=== PATIENT | female | born 1935 | race Caucasian/White ===

== ENCOUNTER 2020-06-01 10:25 | Emergency (ER) | payer OTHER ==
[~2020-06-01] VITALS: Ht 160 cm; Wt 112.2 kg
[2020-06-01 11:57] VITALS: BP 149/60
== END 2020-06-01 13:12 | disposition home or self-care (01) ==
LOC: ER 10:25
DX: S46.911A Strain of unspecified muscle, fascia and tendon at shoulder and upper arm level, right arm, initial encounter (principal); Z88.1 Allergy status to other antibiotic agents; Z88.8 Allergy status to other drugs, medicaments and biological substances; X50.1XXA Overexertion from prolonged static or awkward postures, initial encounter; Y93.89 Activity, other specified; Y92.89 Other specified places as the place of occurrence of the external cause; Y99.8 Other external cause status

== ENCOUNTER 2021-04-23 01:03 | Inpatient (IN) | payer OTHER ==
[~2021-04-23] VITALS: Ht 170.2 cm; Wt 104.7 kg
--- NOTE | ~2021-04-23 | EMS ---
[place] [address] EMS Patient Care Report Name: ABDIAS SEGUNDO Room #: 170-16 ADM IN M.R.#: [id number] Admission: 04/23/21 Attend Phys: Lilian Tang Discharge: Date of : 34 Report #: [id number] THIS REPORT FOR: //name// Report Transmitted: 04/23/2021 15:37 EMS Care Summary [place], [place]/[facility] Incident [id number] @ 04/23/2021 00:23 Incident [address] [place] [address] Patient ABDIAS SEGUNDO Female, 86 Years 1935 Patient Address [address] [place] [address] Patient History Other,Hypertension (HTN),Stroke/CVA, Patient Allergies No known allergies, Chief Complaint confusion Disposition Transported No Lights/[place] Dispatch Reason Sick Person Transported To [facility] Narrative pt found seated in wheelchair in living room. she opens eyes to light shaking and is grossly confused. son states her speech has been getting slurred and she has had increased confusion over the past 90 mins. no N/V/D. pt told son earlier that she just felt "sick". her son req her eval at [facility] [address] EMS Patient Care Report Name: ABDIAS SEGUNDO Room #: 170-16 ADM IN .R.#: [id number] Admission: 04/23/21 Attend Phys: Lilian Tang Discharge: Date of : 34 Report #: [id number] cot, tx as listed in flow chart. transport w/o change in pt condition. report to staff rm 1. Initial Vitals @00:36P: 82,R: 18,BP: 105/49,GCS: 11,Glucose: 159,SpO2: 93,Revised Trauma: 11, @00:52P: 80,R: 18,BP: 106/50,GCS: 11,SpO2: 99,Revised Trauma: 11, Assessments @00:31MENTAL:Other,Confused,SKIN:No Abnormalities,HEENT:Eyes: Right Pupil: 3-mm,Eyes: Left Pupil: 3-mm,LUNG SOUNDS:ABDOMEN:PELVIS//GI:EXTREMITIES:Right Leg: Edema,Left Leg: Edema,PULSE:NEURO:Slurred Speech, Impression Confusion/Delirium Procedures @00:31 ALS Assessment Response: Unchanged @00:47 IV Therapy - Saline Lock 0cc (22 ga) Site: Hand-Left Response: UnchangedFailed @00:42 Oxygen FlowRate: 4 Device: Nasal Cannula (NC) Response: UnchangedSucceeded @00:33 Stretcher Response: Unchanged @00:38 3-Lead ECG Response: Unchanged Timeline 00:21,Call Received 00:21,Dispatch Notified 00:23,Dispatched 00:24,En Route 00:29,On Scene 00:31,At Patient 00:31,ALS Assessment,Response: Unchanged 00:33,Stretcher,Response: Unchanged 00:36,BP: 105/49 M,PULSE: 82,RR: 18 R,SPO2: 93 Ox,ETCO2: ,B,PAIN: ,GCS: 11, 00:38,3-Lead ECG,Response: Unchanged 00:42,Oxygen FlowRate: 4 Device: Nasal Cannula (NC) Response: UnchangedSucceeded, 00:47,IV Therapy - Saline Lock 0cc 22 ga Site: Hand-Left,Response: UnchangedFailed, 00:48,Depart Scene 00:52,BP: 106/50 M,PULSE: 80,RR: 18 R,SPO2: 99 Ox,ETCO2: ,BG: ,PAIN: ,GCS: 11, 00:56,At Destination 01:14,Call Closed [facility] [address] [place] [address] EMS Patient Care Report Name: ABDIAS SEGUNDO Room #: 170-16 ADM IN M.R.#: [id number] Admission: 04/23/21 Attend Phys: Lilian Tang Discharge: Date of : 34 Report #: [id number] Disclaimer v1.1 Copyright 2021 [employer] This EMS Care Summary contains data elements from the applicable legal record (which may be displayed differently). It is designed to provide pertinent information for the following purposes: continuity of care, clinical quality, and state data reporting. The complete legal record is available to ED staff and administrators of the receiving hospital in [facility]'s Patient Tracker. All data is provided "as is."
--- NOTE | ~2021-04-23 | EMS ---
[address] [address] EMS Patient Care Report Name: ABDIAS SEGUNDO Room #: REG GUERA Santana#: [id number] Admission: 04/23/21 Attend Phys: Discharge: Date of : 34 Report #: [id number] THIS REPORT FOR: //name// Report Transmitted: 04/23/2021 01:02 EMS Care Summary [place], [place]/[facility] Incident [id number] @ 04/23/2021 00:23 Incident Location [address] [place] [address] Patient ABDIAS SEGUNDO Female, 86 Years 1935 Patient Address [address] [place] [address] Patient History Other,Hypertension (HTN),Stroke/CVA, Patient Allergies No known allergies, Chief Complaint confusion Disposition Transported No Lights/[place] Dispatch Reason Sick Person Transported To [facility] Narrative pt found seated in wheelchair in living room. she opens eyes to light shaking and is grossly confused. son states her speech has been getting slurred and she has had increased confusion over the past 90 mins. no N/V/D. pt told son earlier that she just felt "sick". her son req her eval at [facility]. pt lifted to [address] [address] EMS Patient Care Report Name: ABDIAS SEGUNDO Room #: REG GUERA Santana#: [id number] Admission: 04/23/21 Attend Phys: Discharge: Date of : 34 Report #: [id number] cot, tx as listed in flow chart. transport w/o change in pt condition. report to staff rm 1. Initial Vitals @00:36P: 82,R: 18,BP: 105/49,GCS: 11,Glucose: 159,SpO2: 93,Revised Trauma: 11, @00:52P: 80,R: 18,BP: 106/50,GCS: 11,SpO2: 99,Revised Trauma: 11, Assessments @00:31MENTAL:Other,Confused,SKIN:No Abnormalities,HEENT:Eyes: Right Pupil: 3-mm,Eyes: Left Pupil: 3-mm,LUNG SOUNDS:ABDOMEN:PELVIS//GI:EXTREMITIES:Right Leg: Edema,Left Leg: Edema,PULSE:NEURO:Slurred Speech, Impression Confusion/Delirium Procedures @00:31 ALS Assessment Response: Unchanged @00:47 IV Therapy - Saline Lock 0cc (22 ga) Site: Hand-Left Response: UnchangedFailed @00:42 Oxygen FlowRate: 4 Device: Nasal Cannula (NC) Response: UnchangedSucceeded @00:33 Stretcher Response: Unchanged @00:38 3-Lead ECG Response: Unchanged Timeline 00:21,Call Received 00:21,Dispatch Notified 00:23,Dispatched 00:24,En Route 00:29,On Scene 00:31,At Patient 00:31,ALS Assessment,Response: Unchanged 00:33,Stretcher,Response: Unchanged 00:36,BP: 105/49 M,PULSE: 82,RR: 18 R,SPO2: 93 Ox,ETCO2: ,B,PAIN: ,GCS: 11, 00:38,3-Lead ECG,Response: Unchanged 00:42,Oxygen FlowRate: 4 Device: Nasal Cannula (NC) Response: UnchangedSucceeded, 00:47,IV Therapy - Saline Lock 0cc 22 ga Site: Hand-Left,Response: UnchangedFailed, 00:48,Depart Scene 00:52,BP: 106/50 M,PULSE: 80,RR: 18 R,SPO2: 99 Ox,ETCO2: ,BG: ,PAIN: ,GCS: 11, 00:56,At Destination 01:14,Call Closed [facility] [address] [place] [address] EMS Patient Care Report Name: ABDIAS SEGUNDO Room #: REG GUERA Santana#: [id number] Admission: 04/23/21 Attend Phys: Discharge: Date of : 34 Report #: [id number] Disclaimer v1.1 Copyright 2021 [employer] This EMS Care Summary contains data elements from the applicable legal record (which may be displayed differently). It is designed to provide pertinent information for the following purposes: continuity of care, clinical quality, and state data reporting. The complete legal record is available to ED staff and administrators of the receiving hospital in [facility]'s Patient Tracker. All data is provided "as is."
[2021-04-23 01:06] VITALS: BP 117/34; BP 153/32
[2021-04-23 01:41] LABS: ABSOLUTE NEUTROPHILS 8.1 thou/uL (1.4-8.2); BASOPHILS 0.5 % (0.0-2.0); EOSINOPHILS 1.1 % (0.0-3.0); HEMATOCRIT 31.6 % (37.0-47.0); HEMOGLOBIN 10.1 gm/dL (12.0-15.0); LYMPHOCYTES 10.7 % (24.0-44.0); MCH 27.4 pg (26.0-34.0); MCHC 31.8 g/dL (28.0-37.0); MCV 86.3 fL (80.0-100.0); MONOCYTES 6.8 % (1.0-8.0); PLATELET COUNT 193 thou/uL (150-400); POLYS 80.9 % (36.0-66.0); RBC 3.66 mil/uL (4.20-5.00); RDW 16.6 % (10.5-14.5)
[2021-04-23 01:42] LABS: URINE BILIRUBIN NEGATIVE (Negative); URINE BLOOD TRACE (Negative); URINE CLARITY CLOUDY; URINE COLOR YELLOW; URINE GLUCOSE-RANDOM* NEGATIVE (Negative); URINE KETONES NEGATIVE (Negative); URINE NITRITE-REFLEX NEGATIVE (Negative); URINE PROTEIN (DIPSTICK) TRACE (Negative); URINE SPECIFIC GRAVITY >= 1.030 (1.005-1.035); URINE UROBILINOGEN 0.2 E.U./dl (0.2-1.0)
[2021-04-23 01:43] LABS: URINE LEUKOCYTES-REFLEX 2+ (Negative)
[2021-04-23 01:48] LABS: CALCIUM 8.9 mg/dL (8.5-10.1); CREATININE 1.2 mg/dL (0.6-1.0); POTASSIUM 3.1 mmol/L (3.5-5.1)
[2021-04-23 01:58] LABS: TOTAL BILIRUBIN 0.4 mg/dL (0.2-1.0); TOTAL PROTEIN 6.9 g/dL (6.4-8.2)
[2021-04-23 02:19] LABS: BACTERIA-REFLEX >30 Many /HPF (None Seen); CASTS None Seen /LPF (None Seen); CRYSTALS None Seen /LPF (None Seen); MUCUS 4-6 Moderate strn/LPF (None Seen); SQUAMOUS 0-3 Few /LPF (0-3); URINE RBC 3-10 Few /HPF (NONE SEEN)
--- NOTE | 2021-04-23 07:50 | EKG ---
[address] [place] [address] ELECTROCARDIOGRAM REPORT Name: ABDIAS SEGUNDO Room #: 170-1 ADM IN M.R.#: [id number] Admission: 04/23/21 Attend Phys: Lilian Tang Discharge: Date of : 34 Report #: [id number] [facility] ED Test Date: 2021-04-23 Test Time: 02:03:01 Pat Name: ABDIAS SEGUNDO Department: Room: 170 Gender: F Selling Specialist: LESTERRios : 1935 Requested By: Ever Crawford Order Number: [id number] MD: Dhruv Mcwilliams Measurements Intervals [place] Rate: 79 P: 44 [place]: 177 QRS: -17 QRSD: 96 T: 60 QT: 399 QTc: 458 Interpretive Statements Sinus rhythm Borderline left axis deviation No previous ECG available for comparison Electronically Signed On 04-23-2021 7:50:40 PROJECT MANAGER ENTERTAINMENT AND MEDIA by Dhruv Mcwilliams [email or web address] <ELECTRONICALLY SIGNED> By: Dhruv Mcwilliams MD, LOCATED WITHIN [facility] 04/23/21 [phone] Dhruv Mcwilliams MD, FACC /EPI
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
[2021-04-23 15:20] VITALS: BP 138/48
--- NOTE | 2021-04-23 21:15 | NUR ---
REPORT CLLE DTO FLOOR, GIVEN TO RN.
[2021-04-23 21:55] VITALS: BP 152/30
[2021-04-23 22:14] VITALS: BP 114/40
[2021-04-24 05:46] VITALS: BP 138/55
--- NOTE | 2021-04-24 05:59 | NUR ---
PATIENT IS A NEW ADMIT.PATIENT AOX2 CONFUSED AND FORGETFUL. PATIENT ADMITTED FOR UTI AND AMS. PATIENT IS A POOR HISTORIAN. PATIENT HAS LYMEDEMA WRAPS ON BLE AND REFUSED THIS NURSE TO TAKE THEM OFF.PATIENT NEEDS X2 ASSISTANCE WITH ADL, BED MOBILITY, TRANSFER AND TOILETING. PATIENT ENCOURAGED TO ELEVATE BLE. FALL PRECAUTION IN PLACE. PATIENT IN BED ASLEEP AT THIS TIME BREATHING REGULAR AND UNLABOURED.
[2021-04-24 06:07] LABS: GLYCOHEMOGLOBIN (HGB A1C) 5.6 % (4.8-5.6)
[2021-04-24 07:30] VITALS: BP 122/48
--- NOTE | 2021-04-24 10:53 | NUR ---
Nutrition: pt admitted with UTI, metabolic encephalopathy. Some confusion noted. Physician consulted for "malnutrition"-defer dx. Attempted interview. Fair appetite reported, no weight loss. Pt BMI 36, obesity class 2. 50% of breakfast consumed. Noted some missing teeth, pt voices some chewing difficulty. Will add mech chopped to diet order. Pt agrees. Offer ensure once daily due to fair intakes. Low nutrition risk.
--- NOTE | 2021-04-24 11:16 | NUR ---
A/O X 3 FORGETFUL, ROOM AIR. 2 ASIIST RIGHT FOREARM IV WITH NS INFUSING @ 75 MLS/HR, ZAMORA IN PLACE- YELLOW URINE NOTED IN BAG. BLE LYPHEDEMA-LEGS WRAPPED WITH KHUSHI WRAP/ NO PAIN. TOLERATING IV ZOSYN WELL. WORKED WITH PT/OT.
[2021-04-24 11:25] VITALS: BP 122/53
[2021-04-24 15:15] VITALS: BP 130/52
[2021-04-24 15:19] LABS: HEMATOCRIT 25.8 % (37.0-47.0); HEMOGLOBIN 8.3 gm/dL (12.0-15.0); MCH 27.4 pg (26.0-34.0); MCV 85.7 fL (80.0-100.0); RBC 3.01 mil/uL (4.20-5.00); RDW 16.6 % (10.5-14.5); WBC 7.2 thou/uL (4.0-11.0)
[2021-04-24 15:28] LABS: CREATININE 1.1 mg/dL (0.6-1.0); MAGNESIUM 2.1 mg/dL (1.8-2.4); POTASSIUM 3.4 mmol/L (3.5-5.1)
--- NOTE | 2021-04-24 17:00 | NUR ---
[facility] not accepting of patient. Sp with son who reports he wants to try to take patient home. Rec [facility] cryptanalyst. He reports facilities are not staffed well and patient did not rec much therapy. He is open to hiring private duty. He wants lyphadema wraps for patient. She was rec as outpatient. Phys to order. left [facility] list and private duty info for son in room
[2021-04-24 19:44] VITALS: BP 1520/49
--- NOTE | 2021-04-25 04:10 | NUR ---
ASSUMED CARE OF THIS PT AT 1900 REPORT RECIEVED PIPPA ASSESSMENT COMPLETE. SON AT BEDSIDE, ANSWERED PT AND SONS QUESTIONS, VERBALIZED APPRECIATION. NO C/O PAIN AT THIS TIME. MEDS GIVEN PER MAR. ZAMORA IN PLACE, ZAMORA CARE PERFORMED. BLE LYMPHEDEMA WRAPS IN PLACE. REPOSITIONING FOR COMFORT. IVF GOING PER MAY. ALL NEEDS MET, HOURLY ROUNDING CONTINUING. CALL LIGHT IN REACH
[2021-04-25 05:14] LABS: HEMATOCRIT 24.8 % (37.0-47.0); HEMOGLOBIN 8.2 gm/dL (12.0-15.0); MCH 28.1 pg (26.0-34.0); MCHC 33.1 g/dL (28.0-37.0); MCV 84.7 fL (80.0-100.0); RBC 2.93 mil/uL (4.20-5.00); RDW 16.4 % (10.5-14.5); WBC 6.9 thou/uL (4.0-11.0)
[2021-04-25 05:53] LABS: CALCIUM 7.7 mg/dL (8.5-10.1); POTASSIUM 3.4 mmol/L (3.5-5.1)
[2021-04-25 08:16] VITALS: BP 150/59
--- NOTE | 2021-04-25 09:59 | NUR ---
ARNAUD faxed clinical/therapy info to [facility] . Notified [facility] liaison of info and possible weekend discharge. ARNAUD is following to assist as needed with discharge planning.
[2021-04-25 11:52] VITALS: BP 128/54
[2021-04-25 13:20] VITALS: BP 163/60
--- NOTE | 2021-04-25 18:34 | NUR ---
Patient resting in bed comfortably, no pain, on isolation for ESBL in urine. had a bm, call light within reach, will continous monitoring.
[2021-04-25 20:30] VITALS: BP 140/96
--- NOTE | 2021-04-26 03:26 | NUR ---
TOOK OVER CARE AT 0130. PT AWAKE IN BED, PULLED OUT IV AND TELEMETRY BOX. PT ASSISTED WITH ADL CARE. ZAMORA TO DD. PT STATED HER MEDICINE IS DONE SHE DOES NOT NEED AN IV, HER ANTIBIOTICS HAVE PREVIOUSLY BEEN PILLS. PT REDIRECTED AND SHE RETURNED TO SLEEP. BED ALARM ON. WILL ATTEMPT IV RESTART IN THE AM, PT HAS MAINTENANCE FLUIDS AND ANTIBIOTICS SCHEDULED.
--- NOTE | 2021-04-26 04:13 | NUR ---
PROVIDER NOTIFIED OF PTS CONFUSION AND CONSISTENT REMOVAL OF TELE BOX, WELL PT REMOVING HER IV STATING SHE DOES NOT NEED IT AND MEDS CAN BE ORAL. WILL ATTEMPT RESTART IV IN AM. WILL AM ATTEMPT TO REPLACE TELE BOX IN AM.
[2021-04-26 05:41] LABS: HEMATOCRIT 27.1 % (37.0-47.0); MCH 28.2 pg (26.0-34.0); MCHC 33.1 g/dL (28.0-37.0); RBC 3.19 mil/uL (4.20-5.00); RDW 16.4 % (10.5-14.5)
[2021-04-26 05:47] LABS: CALCIUM 8.4 mg/dL (8.5-10.1); CREATININE 0.8 mg/dL (0.6-1.0); POTASSIUM 3.5 mmol/L (3.5-5.1)
--- NOTE | 2021-04-26 05:49 | NUR ---
PT DID CONSENT TO NEW IV AND TO LEAVE TELE BOX ON THIS AM.
[2021-04-26 07:41] VITALS: BP 143/91
[2021-04-26 11:31] VITALS: BP 152/50
[2021-04-26 16:22] VITALS: BP 137/59
--- NOTE | 2021-04-26 18:32 | NUR ---
Patient is A&Ox4 and makes needs know. Patient transfers X1 to BSC. Armando was discontinued and patient was transferred to chair. Patient had a BM and voided. IVF & ABX infusing with no issues. C/O of eye irritation. Denies further needs. Fall precautions in place.
[2021-04-26 20:00] VITALS: BP 168/69
--- NOTE | 2021-04-27 05:18 | NUR ---
PT LYING IN BED. DENIES PAIN. INCONTINENT. RESTING COMFORTABLY. NO NEEDS VOICED. CALL LIGHT WITHIN REACH. FREQUENT OBSERVATION.
[2021-04-27 05:19] LABS: HEMATOCRIT 27.6 % (37.0-47.0); HEMOGLOBIN 8.9 gm/dL (12.0-15.0); MCH 27.8 pg (26.0-34.0); MCHC 32.3 g/dL (28.0-37.0); MCV 86.1 fL (80.0-100.0); RBC 3.21 mil/uL (4.20-5.00); RDW 16.4 % (10.5-14.5); WBC 7.8 thou/uL (4.0-11.0)
[2021-04-27 05:33] LABS: CALCIUM 8.3 mg/dL (8.5-10.1); CREATININE 0.9 mg/dL (0.6-1.0); POTASSIUM 3.4 mmol/L (3.5-5.1)
[2021-04-27 07:00] VITALS: BP 170/58
--- NOTE | 2021-04-27 11:32 | NUR ---
ASSUMED CARE OF PT AT 0700 THIS MORNING. PT IS AWAKE AND ALERT TO PERSON AND SITUATION. ASSESSMENTS NOTED IN CHART AND OTHERWISE UNREMARKABLE. FALL PRECAUTIONS ARE IN PLACE DUE TO WEAKNESS. CALL LIGHT AND OTHER NEEDS ARE IN REACH. MEDS AND TX GIVEN NEEDED AND SCHEDULED. WILL MONITOR AND NOTE ANY CHANGES.
[2021-04-27 11:50] VITALS: BP 142/54
[2021-04-27 16:45] VITALS: BP 159/68
[2021-04-27 19:57] VITALS: BP 139/61
[2021-04-28 08:04] VITALS: BP 142/61
--- NOTE | 2021-04-28 08:16 | NUR ---
PT LYING IN BED. DENIES PAIN. CONFUSED. INCONTINENT. FREQUENT OBSERVATION.
[2021-04-28] MEDS ORDERED: ELIQUIS5 MG PO (13:12)
[2021-04-28] MEDS ORDERED: HYDRALAZINE 2525 MG PO (13:12)
[2021-04-28] MEDS ORDERED: NORVASC10 MG PO (13:13)
[2021-04-28] MEDS ORDERED: AUGMENTIN 875-1 EACH PO (13:15)
[2021-04-28] MEDS ORDERED: CYMBALTA60 MG PO (13:15)
[2021-04-28] MEDS ORDERED: REQUIP 1 MG TABL1 M1 PO (13:15)
[2021-04-28] MEDS ORDERED: SYNTHROID50 MCG PO (13:15)
[2021-04-28 13:30] VITALS: BP 142/61
[2021-04-28 14:06] VITALS: BP 142/61
--- NOTE | 2021-04-28 15:31 | NUR ---
Patient is Alert to self and very confused and forgetful this day. Patient "feeling full" but able to tolerate PO diet. Vitals stable. Worked with PT this day and did well. Medically stable to discharge. Awaiting transportation
--- NOTE | 2021-04-28 16:55 | NUR ---
Spoke with son plan dc home today. Faxed orders to [facility] who rec orders. Arranged van for 1600 to home. Verified address with son. No further needs
== END 2021-04-28 17:00 | DRG 682 ==
LOC: ER 01:03 → EROBS 02:48 → 4S 02:48 → EROBS 14:23 → 4S 21:44
PROVIDERS: Emergency Medicine; Nurse Practitioner Family; ADMIT Hospitalist; ATTEND Hospitalist
DX: N17.9 Acute kidney failure, unspecified (principal); G93.41 Metabolic encephalopathy; N39.0 Urinary tract infection, site not specified; E46 Unspecified protein-calorie malnutrition; Z16.12 Extended spectrum beta lactamase (ESBL) resistance; I89.0 Lymphedema, not elsewhere classified; Z20.822 Contact with and (suspected) exposure to COVID-19; E03.9 Hypothyroidism, unspecified; F32.9 Major depressive disorder, single episode, unspecified; F41.9 Anxiety disorder, unspecified; G47.33 Obstructive sleep apnea (adult) (pediatric); B96.1 Klebsiella pneumoniae [K. pneumoniae] as the cause of diseases classified elsewhere; R53.81 Other malaise; E53.8 Deficiency of other specified B group vitamins; Z86.16 Personal history of COVID-19; Z88.6 Allergy status to analgesic agent; Z88.1 Allergy status to other antibiotic agents; Z88.8 Allergy status to other drugs, medicaments and biological substances; Z90.49 Acquired absence of other specified parts of digestive tract; Z68.36 Body mass index [BMI] 36.0-36.9, adult
CPT/HCPCS: 10100

== ENCOUNTER 2021-04-30 09:15 | Inpatient (IN) | payer OTHER ==
[~2021-04-30] VITALS: Ht 170.2 cm; Wt 104.3 kg
[2021-04-30 09:15] VITALS: BP 126/60
[~2021-04-30 09:15] MED LIST: AUGMENTIN 875-1 EACH PO; CYMBALTA60 MG PO; ELIQUIS5 MG PO; HYDRALAZINE 2525 MG PO; NORVASC10 MG PO; REQUIP 1 MG TABL1 M1 PO; SYNTHROID50 MCG PO
[2021-04-30 09:48] LABS: URINE BILIRUBIN NEGATIVE (Negative); URINE BLOOD NEGATIVE (Negative); URINE CLARITY SL CLOUDY; URINE COLOR YELLOW; URINE GLUCOSE-RANDOM* NEGATIVE (Negative); URINE KETONES TRACE (Negative); URINE LEUKOCYTES-REFLEX 1+ (Negative); URINE NITRITE-REFLEX NEGATIVE (Negative); URINE PROTEIN (DIPSTICK) NEGATIVE (Negative); URINE SPECIFIC GRAVITY >= 1.030 (1.005-1.035); URINE UROBILINOGEN 0.2 E.U./dl (0.2-1.0)
--- NOTE | 2021-04-30 10:00 | EKG ---
[place] [address] [address] [place] [address] ELECTROCARDIOGRAM REPORT Name: ABDIAS SEGUNDO Room #: [facility] [id number] Admission: 04/30/21 Attend Phys: Discharge: Date of : 34 Report #: [id number] [facility] ED Test Date: 2021-04-30 Test Time: 09:21:45 Pat Name: ABDIAS SEGUNDO Department: Room: Gender: F Entry Manager: : 1935 Requested By: Cam De La Garza Order Number: [id number] MD: Dhruv Mcwilliams Measurements Intervals [place] Rate: 69 P: 45 NV: 172 QRS: -18 QRSD: 93 T: 81 QT: 409 QTc: 438 Interpretive Statements Sinus rhythm Abnormal R-wave progression, early transition Compared to ECG 04/23/2021 02:03:01 Early R wave progression is now present Electronically Signed On 04-30-2021 10:00:41 STENCIL MACHINE OPERATOR by Dhruv Mcwilliams [email or web address] <ELECTRONICALLY SIGNED> By: Dhruv Mcwilliams MD, [facility] 04/30/21 1000 0 Dhruv Mcwilliams MD, FACC /EPI
[2021-04-30 10:28] LABS: CASTS None Seen /LPF (None Seen); SQUAMOUS 4-10 Moderate /LPF (0-3)
[2021-04-30 10:29] LABS: CRYSTALS None Seen /LPF (None Seen)
[2021-04-30 10:30] LABS: BACTERIA-REFLEX 1-9 Few /HPF (None Seen); URINE RBC None Seen /HPF (NONE SEEN); URINE WBC-REFLEX 6-15 Few /HPF (0-5)
--- NOTE | 2021-04-30 10:39 | NUR ---
unable to obtain blood after multiple attempts. ERP made aware. Called lab to attempt. Paged IV team for IV access.
[2021-04-30 11:40] LABS: ABSOLUTE NEUTROPHILS 7.8 thou/uL (1.4-8.2); BASOPHILS 0.7 % (0.0-2.0); EOSINOPHILS 1.7 % (0.0-3.0); HEMATOCRIT 31.3 % (37.0-47.0); HEMOGLOBIN 9.9 gm/dL (12.0-15.0); LYMPHOCYTES 11.2 % (24.0-44.0); MCH 27.4 pg (26.0-34.0); MCHC 31.8 g/dL (28.0-37.0); MCV 86.1 fL (80.0-100.0); MONOCYTES 6.2 % (1.0-8.0); PLATELET COUNT 198 thou/uL (150-400); POLYS 80.2 % (36.0-66.0); RBC 3.63 mil/uL (4.20-5.00); RDW 16.9 % (10.5-14.5); WBC 9.7 thou/uL (4.0-11.0)
[2021-04-30 11:43] LABS: APTT 25.4 Seconds (24.5-32.8); INR 0.97; PROTIME 10.6 Seconds (10.5-12.1)
[2021-04-30 11:47] LABS: CALCIUM 8.8 mg/dL (8.5-10.1); CREATININE 1.7 mg/dL (0.6-1.0); POTASSIUM 3.8 mmol/L (3.5-5.1)
[2021-04-30 11:58] LABS: ALBUMIN 3.3 g/dL (3.4-5.0); TOTAL BILIRUBIN 0.3 mg/dL (0.2-1.0)
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
[2021-04-30 13:33] VITALS: BP 115/58
--- NOTE | 2021-04-30 14:43 | NUR ---
ASSUMED PT CARE FROM ED AT 1400. PT IS AWAKE AND ALERT TO SELF ONLY. PT HAS IV SITE ON L BREAST AND LAC. PT HAS TELE MONITOR ON AND ZAMORA. PT IS ON ROOM AIR. FINISHED ADMISSION. KYRPTOTEXT HOSPITALIST REGARDING PT DIET ORDER. PT ON THE BED, BED ON THE LOWEST POSITION, SIDE RAILS UP, CALL LIGHT WITHIN REACH. FOLLOW POC.
[2021-04-30 15:52] VITALS: BP 100/50
[2021-04-30 19:40] VITALS: BP 142/51
--- NOTE | 2021-05-01 04:21 | NUR ---
PT VERY LETHARGIC AT START OF SHIFT, UNABLE TO ANSWER QUESTIONS OR FORM COHERENT SENTENCES. PT WAS FED DINNER, CONSUMED ENTIRE PLATE. PT HAS BEEN INCREASINGLY MORE ALERT AND INTERACTIVE OVERNIGHT. SHE REMAINS SITUATIONALLY UNAWARE BUT CAN PARTICIPATE IN MEANINGFUL CONVERSATION
[2021-05-01 05:21] VITALS: BP 123/50
[2021-05-01 07:32] VITALS: BP 133/42
[2021-05-01 11:53] VITALS: BP 132/52
--- NOTE | 2021-05-01 13:12 | NUR ---
Spoke with son Chacorta at bedside. Discussed 5N in process of evaluation. Son reports he has spoken with insurance company and if denied he wants to appeal. Son does not want skilled facility. He reports patient has been at skilled in past and they are not staffed well at this time. he also reports therapy is not aggressive at skilled level. Gave son [facility] list to review as plan if 5N not able to accept or insurance denial.
[2021-05-01 15:22] VITALS: BP 135/56
[2021-05-01 19:15] VITALS: BP 143/73
--- NOTE | 2021-05-02 05:14 | NUR ---
PT AWAKE THROUGHOUT MOST OF SHIFT. PT IS ORIENTED TO SELF ONLY AND VERY FORGETFUL. PT REPEATEDLY ASKS FOR HER MEDS DESPITE FREQUENT REMINDERS THAT SHE ALREADY TOOK THEM. TURNS PERFORMED PT WAS WILLING. ZAMORA IN PLACE. FLUIDS INFUSING PER ORDERS
[2021-05-02 08:04] VITALS: BP 141/64
[2021-05-02 10:44] LABS: HEMATOCRIT 25.2 % (37.0-47.0); HEMOGLOBIN 8.1 gm/dL (12.0-15.0); MCH 27.2 pg (26.0-34.0); MCHC 32.1 g/dL (28.0-37.0); MCV 84.9 fL (80.0-100.0); RBC 2.97 mil/uL (4.20-5.00); RDW 16.6 % (10.5-14.5); WBC 6.3 thou/uL (4.0-11.0)
[2021-05-02 10:57] LABS: CALCIUM 8.6 mg/dL (8.5-10.1); CREATININE 0.9 mg/dL (0.6-1.0); MAGNESIUM 2.1 mg/dL (1.8-2.4); POTASSIUM 3.4 mmol/L (3.5-5.1)
--- NOTE | 2021-05-02 11:26 | NUR ---
pt alert and oriented to person and situation mostly this morning. thought she was a [facility]. remembers coming into the hospital and being treated for UTI. no c/o at this time. assisted up to chair. used bsc had maroon colored stool and very small clot on stool. notified. assymptomatic, denies hx of hemmroids. will cont to monitor and follow poc.
[2021-05-02 12:03] VITALS: BP 118/41
--- NOTE | 2021-05-02 12:36 | NUR ---
PATIENT IS ACCEPTED FOR ACUTE REHAB STAY ON 5N PENDING AUTHORIZATION. AUTHORIZATION REQUESTED THIS DATE FROM INSURANCE AND CLINICAL INFORMATION SENT TO INSURANCE. WILL AWAIT RESPONSE.
[2021-05-02 16:21] VITALS: BP 129/66
--- NOTE | 2021-05-02 18:06 | NUR ---
Ventura carvalho in process of authorization. Son wants appeal if insurance is denied.
[2021-05-02 20:00] VITALS: BP 150/67
--- NOTE | 2021-05-03 05:26 | NUR ---
PT AWAKE THROUGHOUT OUT MOST OF SHIFT. PT REMOVED IV OVERNIGHT- MULTIPLE ATTEMPTS MADE TO REPLACE IT WITHOUT SUCCESS, WILL PASS TO DAY TEAM FOR REPLACEMENT. PT UP TO BSC WITH X2 ASSIST AND WALKER OVERNIGHT- EXPLICIT DIRECTIONS NEEDED TO TRANSFER EFFECTIVELY. VSS. SELF TURNS PERFORMED
[2021-05-03 05:59] LABS: HEMATOCRIT 29.2 % (37.0-47.0); HEMOGLOBIN 9.2 gm/dL (12.0-15.0); MCH 27.4 pg (26.0-34.0); MCHC 31.5 g/dL (28.0-37.0); MCV 87.2 fL (80.0-100.0); RBC 3.35 mil/uL (4.20-5.00); RDW 16.8 % (10.5-14.5); WBC 6.6 thou/uL (4.0-11.0)
[2021-05-03 06:20] LABS: CALCIUM 8.6 mg/dL (8.5-10.1); CREATININE 0.7 mg/dL (0.6-1.0); MAGNESIUM 2.3 mg/dL (1.8-2.4); POTASSIUM 3.7 mmol/L (3.5-5.1)
[2021-05-03 07:35] VITALS: BP 136/80
--- NOTE | 2021-05-03 12:04 | NUR ---
ASSUMED CARE OF PT AT 0700. WAS ABLE TO GET RIGHT IV INSERTED IN ARM FOR FLUIDS BY VASCULAR TEAM. PT REPOSITIONED AND PERFORMED PALOMA CARE ON PT. VSS. AFEBRILE. NO SOB. NO COMPLAINTS. PT AOX3, NOT SURE INDICATION FOR HOSPITAL STAY. WILL FOLLOW UP WITH DR JOHNSON ON POC. MABLE TO MONITOR
[2021-05-03 15:54] VITALS: BP 143/61
[2021-05-03 19:24] VITALS: BP 138/46
--- NOTE | 2021-05-04 05:05 | NUR ---
patient aox2 confused and forgetful. patient denied pain or discomfort. patient educated on hs meds. patient incontient this shift pericare and barrier cream applied as needed. ble elevate d/t +2 edema. fall precaution in place. patient in bed asleep at this time breathing regular and unlaboured.
[2021-05-04 07:20] VITALS: BP 146/44
[2021-05-04 11:50] VITALS: BP 128/52
--- NOTE | 2021-05-04 12:55 | NUR ---
CALL RECEIVED FROM [facility] REGARDING AUTHORIZATION FOR ACUTE REHAB. PEER TO PEER BEING OFFERED AND IS DUE BY 12:00 ON Wednesday05/05/21. NUMBER TO CALL IS [phone]. IF PEER TO PEER IS NOT COMPLETED, ACCOUNTS COLLECTOR WILL MAKE THEIR DETERMINATION BASED ON THE INFORMATION THEY CURRENTLY HAVE.
--- NOTE | 2021-05-04 16:15 | NUR ---
Patient is forgetful but oriented X 3 this day. Patient was incontinent. Provider ordered patient to be out of bed and up in chair during day. Patient did transfer to BSC and chair with 1-2 assist and did fair. Denies pain except for "bad leg" when ambulting but did not want medication for it. Patient denies further needs and is pleasant this shift. Fall precautions in place
[2021-05-04 19:34] VITALS: BP 153/67
--- NOTE | 2021-05-05 04:25 | NUR ---
PT IS FORGETFUL. ALERT TO SELF.ROOM AIR. SHE TAKES TELE TUSHAR OFF SOMETIMES. VOIDING PER BSC BUT SHE IS ALSO INCONTINENT.MOVES VERY SLOWLY FOR TRANSFERS.
[2021-05-05 07:39] VITALS: BP 139/59
[2021-05-05 08:18] VITALS: BP 139/59
--- NOTE | 2021-05-05 11:18 | NUR ---
OVER WEEKEND PATIENT'S INSURANCE CALLED AND DENIED REHAB AUTHORIZATION. PEER TO PEER PERFORMED THIS DATE BY DR. ERVIN AND DENIAL UPHELD. D/C ENVIRONMENTAL SCIENCE PROFESSOR INFORMED OF THE ABOVE.
[2021-05-05 12:08] VITALS: BP 146/82
--- NOTE | 2021-05-05 14:35 | NUR ---
5N submitted for auth and insurance denied acute rehab. 5N appealed and denial up held. Sp with with son Chacorta who is going to appeal as well and complete second appeal. He sp also with 5N liason.
[2021-05-05 16:21] VITALS: BP 120/48
--- NOTE | 2021-05-05 20:06 | NUR ---
patient is sat up in the chair, no pain, call light within reach, will continous monitoring.
[2021-05-05] MEDS ORDERED: ALPRAZOLAM 0.50.5 MG PO (21:08)
[2021-05-05] MEDS ORDERED: IMIPRAMINE HCL50 M2 PO (21:10)
[2021-05-05] MEDS ORDERED: TEMAZEPAM7.5 MG PO (21:11)
[2021-05-05 22:20] VITALS: BP 128/90
--- NOTE | 2021-05-05 22:56 | NUR ---
Pt feeling nervous and depressed at the start of shift. Meds that she takes at home confirmed by son Chacorta. Pt started on xanax. She had a BM.REquires help x 1 to the BSC-requires extra time. Afebrile.Room air. SR on telemetry.
[2021-05-06 08:51] VITALS: BP 145/58
--- NOTE | 2021-05-06 10:56 | NUR ---
PATIENT'S SON, LUIS, STARTED APPEAL WITH [facility] FOR REHAB AUTHORIZATON. CLINICAL INFORMATION FAXED THIS DATE TO INCLUDE NEW NOTE FROM DR. ERVIN DATED 05/06/21. WILL AWAIT RESPONSE.
[2021-05-06 16:09] VITALS: BP 130/45
--- NOTE | 2021-05-06 16:30 | NUR ---
I have reviewed the documentation by PARISH RODRIGUEZ from 05/06/21 to 05/06/21 and I concur with it. IBETH DONALD, PT, DPT
--- NOTE | 2021-05-06 17:50 | NUR ---
Patient is alert and orient person, up in the chair eating lunch and dinner, no pain, call light within reach.
[2021-05-06 19:12] VITALS: BP 145/63
[2021-05-07 04:11] VITALS: BP 142/53
--- NOTE | 2021-05-07 05:06 | NUR ---
ASSUMED PT CARE THIS PM. PT IS ALERT AND ORIENTED X2. PT HAS SWELLING AND REDNESS TO BLE. MEDS WERE GIVEN PER EMAR ORDERS. PT CAN BE INCONTINENT AT TIMES. PT IS ON RA. NO VISIBLE SIGN OF DISTRESS NOTED. PT IS A HARD STICK AND CURRRENTLY DOES NOT HAVE A PIV ACCESS AND WILL NEED AN IV TEAM; WILL INFORM DAY SHIFT RN. FALL PRECAUTIONS IN PLACE. WILL CONTINUE TO MONITOR.
[2021-05-07 07:36] VITALS: BP 143/66
[2021-05-07 08:41] VITALS: BP 143/66
--- NOTE | 2021-05-07 09:40 | NUR ---
Admit with acute metabolic encephalopathy, UTI, debility. Eating 80-100% of meals. ST recommends [facility] altered ground diet to increased mastication efforts. Wt obese and without signficant changes. Does not need carb control diet (no hx diabetes) and does not require ensure supplement since eating well. Will change diet order. Low nutrition risk
--- NOTE | 2021-05-07 13:04 | NUR ---
ASSUMED PATIENT THIS AM. NO COMPLAINTS OF PAIN OR N/V RESTING QUIETLY IN BED. PATIENT HAS BEEN ACCEPTED BY REHAB AND WILL BE MOVED BY END OF THE SHIFT
--- NOTE | 2021-05-07 13:52 | NUR ---
Insurance accepted for dc to acute rehab. Sp with son Chacorta who is in agreement with transfer to . Discussed clothes for patient and team conference for patient.
== END 2021-05-07 18:26 | DRG 70 ==
LOC: ER 09:15 → EROBS 12:23 → 4S 12:23
PROVIDERS: Emergency Medicine; ADMIT Internal Medicine; ATTEND Internal Medicine
DX: G93.41 Metabolic encephalopathy (principal); N17.0 Acute kidney failure with tubular necrosis; J18.9 Pneumonia, unspecified organism; N39.0 Urinary tract infection, site not specified; G47.33 Obstructive sleep apnea (adult) (pediatric); I89.0 Lymphedema, not elsewhere classified; F32.9 Major depressive disorder, single episode, unspecified; F41.9 Anxiety disorder, unspecified; E86.0 Dehydration; E03.9 Hypothyroidism, unspecified; R53.81 Other malaise; E66.01 Morbid (severe) obesity due to excess calories; E53.8 Deficiency of other specified B group vitamins; N18.9 Chronic kidney disease, unspecified; I12.9 Hypertensive chronic kidney disease with stage 1 through stage 4 chronic kidney disease, or unspecified chronic kidney disease; Z20.822 Contact with and (suspected) exposure to COVID-19; Z88.1 Allergy status to other antibiotic agents; Z88.8 Allergy status to other drugs, medicaments and biological substances; Z68.36 Body mass index [BMI] 36.0-36.9, adult; Z86.718 Personal history of other venous thrombosis and embolism
CPT/HCPCS: 10100

== ENCOUNTER 2021-05-07 13:45 | Inpatient (IN) | payer OTHER ==
[~2021-05-07] VITALS: Ht 162.6 cm; Wt 99.2 kg
[~2021-05-07 13:45] MED LIST changes: +ALPRAZOLAM 0.50.5 MG PO; +IMIPRAMINE HCL50 M2 PO; +TEMAZEPAM7.5 MG PO
[2021-05-07 18:10] VITALS: BP 119/71
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
--- NOTE | 2021-05-07 18:48 | NUR ---
PT CALLED AND WAS INCON OF URINE IN BED. PT STATED SHE HAS LYMPHYDEMA AND SHE FORGOT THE DR. NAME. SKIN INTACT TO BUTTOCKS. CHANGED PAD AND TOOK OFF BRIEF SINCE PT IN BED.
[2021-05-07 20:29] VITALS: BP 152/97
[2021-05-07 20:58] VITALS: BP 145/48
--- NOTE | 2021-05-08 02:26 | NUR ---
PATIENT ADMITTED TO ROOM 503 AROUND 1809. ADMISSION ASSESSMENT AND EDUCATION PERFORMED DURING THIS SHIFT. PATIENT IS A&OX3, REORIENTED TO SITUATION, CAN BE FORGETFUL. PATIENT IS ORIENTED TO ROOM AND UNIT. PATIENT'S SON (LUIS) CAME IN DURING ASSESSMENT AND HELPED ANSWER SOME QUESTIONS AND SIGN CONSENT FORMS. PATIENT HAS A GOLD [place] BAND THAT IS TC ENCRUSTED ON LEFT RING FINGER. PATIENT IS ADVISED THAT WE ARE NOT RESPONSIBLE FOR LOST OR STOLEN ITEMS, AND VALUABLES ARE NOT SECURED IN HER ROOM. SINCE THE GOLD RING IS VALUABLE THIS NURSE OFFERED TO KEEP IT SAFE BY SENDING IT DOWN TO SECURITY TO BE PLACED IN A LOCK BOX. PATIENT EXPRESSED UNDERSTANDING, BUT REFUSED TO TAKE IT OFF FOR SAFE KEEPING AND STATED SHE WOULD RATHER KEEP IT ON. PATIENT IS ABLE TO MAKE NEEDS KNOWN, AND HAS BEEN USING CALL LIGHT APPROPRIATELY. INCONTINENT OF LARGE AMOUNT OF URINE TWICE IN THE EARLY EVENING, PERICARE PROVIDED AND INCONTINENCE PADS CHANGED. EXTERNAL FEMALE CATHETER APPLIED AT HS. ASSISTED WITH REPOSITIONING. PATIENT REQUESTED FOR A SLEEP-AID, SWIMMING PROFESSOR PROVIDER NOTIFIED AND PRN MELATONIN ORDER RECEIVED. MELATONIN ADMINISTERED SLEEP-AID. PATIENT IS SLEEPING ON HOURLY ROUNDS. FALL PRECAUTIONS IN PLACE, CALL LIGHT WITHIN REACH. WILL CONTINUE TO MONITOR.
[2021-05-08 02:37] LABS: HEMATOCRIT 25.8 % (37.0-47.0); HEMOGLOBIN 8.3 gm/dL (12.0-15.0); MCHC 32.1 g/dL (28.0-37.0); MCV 84.2 fL (80.0-100.0); RBC 3.06 mil/uL (4.20-5.00); RDW 16.5 % (10.5-14.5); WBC 8.5 thou/uL (4.0-11.0)
[2021-05-08 04:42] LABS: CALCIUM 8.4 mg/dL (8.5-10.1); CREATININE 0.7 mg/dL (0.6-1.0)
[2021-05-08 07:20] VITALS: BP 125/45
--- NOTE | 2021-05-08 09:43 | NUR ---
86 yr old female who has been to hospital few times since February 2021, with complaints of inability to care for self at home. son Chacorta was having difficulty care for her at home, as he works time piece repairer from home. DX acute encephalopathy, underlying dementia, DJD, HTN, and weakness. The patient had discharged home with [facility] 2 days prior to coming back to the hospital as the son Chacorta was not able to meet her needs in the home setting. Prior to recent hospitalizations and increased weakness Patient Maribel was living at home with her son and grandson. No steps to enter or inside the home that the patient has to do. has a fww, lift recliner, hospital bed. Maribel was able to walk by herself with use of her fww. Has assistance with adls when needed. Been to skilled rehab in the past. PCP Dr Paul Chaudhry. Will continue following as needed.
--- NOTE | 2021-05-08 13:19 | NUR ---
Nutrition: pt transferred to rehab unit with acute metabolic encephalopathy. Assessed by RD on 05/07. Requires mechanical soft diet per ST due to increased mastication efforts. No significant weight change, BMI 37, obesity class 2. Eating 50-100% of meals. RD D/C'ed Carb controlled diet restriction however was re-ordered. No hx of DM but may be desired for calorie control. Low risk.
[2021-05-08 20:30] VITALS: BP 136/62
--- NOTE | 2021-05-09 01:44 | NUR ---
ASSUMED CARE AT 1900 OF 05/08. PATIENT A&OX2, CONFUSED AND FORGETFUL. PATIENT HAD TO BE REPEATEDLY REORIENTED TO TIME AND SITUATION. MAXIMUM ASSIST OF 2 TO PIVOT TRANSFER FROM W/C TO BED, USING GAIT BELT. INCONTINENT OF BLADDER, PERICARE PROVIDED. ASSISTED WITH REPOSITIONING IN BED. CPAP ON AT HS. FALL PRECAUTIONS IN PLACE, CALL LIGHT WITHIN REACH. WILL CONTINUE TO MONITOR.
[2021-05-09 07:32] VITALS: BP 130/47
--- NOTE | 2021-05-09 14:51 | NUR ---
PT A0X4, PLEASANTLY FORGETFUL AND SOMETIMES CONFUSED. MAX ASSIST X2 WITH TRANSFERS WITH GAIT BELT, WALKER TO WHEELCHAIR. INCON OF BLADDER, CONT OF BOWEL. PERICARE PROVIDED WITH MOD ASSIST. FALL PRECAUTIONS IN PLACE. CALL LIGHT W/I REACH.
[2021-05-09 19:36] VITALS: BP 153/72
--- NOTE | 2021-05-10 04:55 | NUR ---
ASSUMED CARE AT 2300 OF 05/09. PATIENT IS PLEASENTLY CONFUSED, A&O TO SELF AND TIME. PATIENT APPEARED RESTLESS AND REPORTED SHE COULD NOT FALL ASLEEP BECAUSE THE HEAT IS NOT TURNED UP IN HER ROOM. THERMOSTAT ADJUSTED, WARM BLANKET PROVIDED AND PRN XANAX ADMINISTERED TO MANAGE RESTLESSNESS. PATIENT WAS ABLE TO FALL ASLEEP AND CONTINUES TO SLEEP DURING HOURLY ROUNDS. LYMPHEDEMA WRAPS ON BLE. FALL PRECAUTIONS IN PLACE, CALL LIGHT WITHIN REACH. WILL CONTINUE TO MONITOR.
[2021-05-10 08:00] VITALS: BP 130/47
--- NOTE | 2021-05-10 10:00 | NUR ---
PT WAS UP WITH THERAPY THIS AM GOING TO BATHROOM. PT WAS UNABLE TO MOVE RT FOOT IN ORDER TO PIVOT TO W/C. TOOK X2 PERSONS TO ASSIST PT TO BED. PT GETTING CT TODAY OF ABD. PT GETTING US AFTER GOING BACK TO BED. PT DIDN'T KNOW WHY SHE WAS GETTING THESE TEST. PT DENIES ANY N/V AT THIS TIME. PT DID SAY SHE HAS BEEN HAVING PAIN TO RT LLE RECENTLY. PT ORIENTED TO PERSON. PT HAS WOUND TO LEFT BREAST THAT HAS A DRESSING OVER IT. PT INCON. OF URINE AT TIMES.
--- NOTE | 2021-05-10 17:06 | NUR ---
PT BANGING HER CALL LIGHT ON THE TABLE TALKING ABOUT WATCHING THE NEWS AND WANTING HER HYDROCODONE. ADM XANAX 0.5MG PO FOR ANXIETY. NO PAIN MED NOTICED ON MAY.
--- NOTE | 2021-05-10 17:13 | NUR ---
ADM TYLENOL ARTHRITIS 650MG PO FOR PAIN TO RT GROIN AREA.
[2021-05-10 19:25] VITALS: BP 130/51
--- NOTE | 2021-05-11 01:46 | NUR ---
JOAO CARE WAS RESUMED AT 1900. SHE IS ALERT AND ABLE TO VERBALIZE HER NEEDS. LUNGS ARE CLEAR BS ACTIVE X4 QUAD. SHE IS INCONTINIET OF BOWEL AND BLADDER. MAX ASSIST WITH CARE. SHE DENIES PAINS AND SHE TOOK HER MEDS WHOLE. PERSONAL ITEMS AND CALL LIGHT AT BED SIDE.
[2021-05-11 07:50] VITALS: BP 115/58
--- NOTE | 2021-05-11 09:51 | NUR ---
PT AWAKE AT THIS TIME. PT HAD CPAP ON DURING THE NIGHT. PT HAS ABRASION TO LEFT BREAST DUE TO A ELECTRODE PATCH, AREA IS OPEN TO AIR AND DRYING, SCABBED UP. PT STATED PAIN TO RT KNEE IS 5 ON 1-10 SCALE. PT INCON. OF URINE AND WEARS BRIEFS. PT TOOK MEDS WHOLE WITH THIN WATER. ADM TYLENOL 325MG 2 TABS FOR PAIN TO RT KNEE, ALSO ADM XANAX 0.5MG PO FOR ANXIETY PER REQUEST. PT ASKING ABOUT HER ABX DUE TO UTI. LOOKED BACK AND SEEN PT HAD ABX IN ACUTE.
--- NOTE | 2021-05-11 15:37 | NUR ---
ADM XANAX 0.5MG PO FOR ANXIETY. PT STATED HER SON IS COMING TODAY. PT STATED LOWER EXT ARE FEELING BETTER.
--- NOTE | 2021-05-11 16:10 | NUR ---
ADM TYLENOL 650MG FOR ARTHRITIS PAIN OF 5 ON 1-10 SCALE. PT ASKING FOR HER HYDROCODONE AND WANTING TO KNOW WHY SHE IS NOT TAKING IT.
[2021-05-11 18:25] VITALS: BP 145/54
--- NOTE | 2021-05-11 22:30 | NUR ---
PATIENT HAD STRESS INCONTINENCE [place] [facility] [place] VOIDED INTO HER LYMPHEDEMA WRAPS. THESE WERE REMOVED FOR THE NIGHT, DUE TO INCONTINENCE AND SKIN CLEANSED AND LUBRICATED. WRAPS REMAIN OFF FOR NOW DUE TO DAMP SKIN AND C/O ITCHING. HEELS OFF-LOADED. PT REQUETED THAT HER XANAX PLEASE BE CHANGED TO TAKE AUTOMATICALLY 3 TIMES A DAY WITH THE FINAL DOSE OF THE DAY BEING AT HS. THIS WILL BE PASSED ON IN REPORT TO THE ONCOMING RN TO DISCUSS WITH MD ON AM ROUNDS. PT'S SON AT BEDSIDE AND ALSO REQUESTED THAT DULOXETINE PLEASE BE CHANGED TO BBE GIVEN AT NOON, SHE WAS TAKING IT AT THIS TIME AT HOME. THIS WILL ALSO BE SHARED IN REPORT TO ASK THE MD ON AM ROUNDS.
--- NOTE | 2021-05-12 05:13 | NUR ---
JOAO CARE WAS RESUMED AT 0130. SHE WAS IN BED WITH EYES CLOSED.SHE DENIESANY PAINS AND DISCOMFORT. BED IS LOCKED, LOW AMD ALARMED. CALL LIGHT AT REACH. CONTINUE CARE.
[2021-05-12 07:37] VITALS: BP 123/57
--- NOTE | 2021-05-12 16:20 | NUR ---
THIS NURSE ASSUMED CARE OF THIS PATIENT AT 0700. PATIENT A&O X 2. PATIENT INCONTINENT BUT PROGRESSING TO BRIEF AND INTERMITTENT PUREWICK THROUGH SHIFT. PATIENT'S RIGHT THIGH AND RIGHT LOWER EXTREMITIES PAINFUL. WILL ADMINISTER PAIN MEDICATION. CONTACTED KEILA TO CHANGE DULOXETINE TO NOON INSTEAD OF HS AND XANAX TO TID PER FAMILY REQUEST.
[2021-05-12 19:07] VITALS: BP 150/54
[2021-05-13 06:48] LABS: ABSOLUTE NEUTROPHILS 4.3 thou/uL (1.4-8.2); BASOPHILS 0.6 % (0.0-2.0); EOSINOPHILS 4.6 % (0.0-3.0); HEMATOCRIT 28.1 % (37.0-47.0); LYMPHOCYTES 28.3 % (24.0-44.0); MCH 26.7 pg (26.0-34.0); MCV 83.4 fL (80.0-100.0); MONOCYTES 9.6 % (1.0-8.0); PLATELET COUNT 345 thou/uL (150-400); POLYS 56.9 % (36.0-66.0); RBC 3.37 mil/uL (4.20-5.00); RDW 16.8 % (10.5-14.5); WBC 7.6 thou/uL (4.0-11.0)
[2021-05-13 07:01] LABS: CALCIUM 9.4 mg/dL (8.5-10.1); CREATININE 0.9 mg/dL (0.6-1.0); MAGNESIUM 2.4 mg/dL (1.8-2.4); POTASSIUM 3.9 mmol/L (3.5-5.1)
[2021-05-13 08:00] VITALS: BP 141/48
--- NOTE | 2021-05-13 16:33 | NUR ---
THIS NURSE ASSUMED CARE OF PATIENT AT 0700. A&O X 2. PATIENT ON ROOM AIR. PATIENT AMBULATES WITH GAIT BELT, WALKER, AND 2 ASSIST. PATIENT APPEARS SLEEPY DURING SHIFT. PATIENT IS TO NOT HAVE STRAWS WITH LIQUIDS. PATIENT IS FATIGUED AND WEAK. PATIENT HAS LOWER EXTREMITY WRAPS ON BOTH LEGS TO HELP WITH LYMPHEDEMA. XRAY OF RIGHT HIP SHOWS NO FRACTURE. PATIENT EXPRESSES PAIN STILL RUNNING FROM RIGHT HIP THROUGH RIGHT LEG. THIS NURSE ADMINISTERED PAIN MEDICATION REQUESTED BY PATIENT.
--- NOTE | 2021-05-13 16:33 | NUR ---
[facility] is following for hh needs at mo, on service prior to admit to the hospital.
[2021-05-13 19:16] VITALS: BP 156/58
--- NOTE | 2021-05-14 03:54 | NUR ---
ASSUMED CARE AT 1915 OF 05/13. PATIENT IS A&OX2, REORIENTED TO TIME AND SITUATION. INTERMITTENTLY CONFUSED AND FORGETFUL. HS SNACK PROVIDED PER PATIENT REQUEST. INCONTINENT OF BLADDER, PERICARE PROVIDED, AND ASSITED WITH REPOSITIONING. PATIENT REQUESTED THAT HER LYMPHEDEMA VELCRO WRAPS AND SOCKS BE REMOVED BECAUSE IT GOT TOO HOT. BLE REMAIN ELEVATED WHILE IN BED. SLEEPING WITH CPAP ON DURING HOURLY ROUNDS, FALL PRECAUTIONS IN PLACE. CALL LIGHT WITHIN REACH, WILL CONTINUE TO MONITOR.
--- NOTE | 2021-05-14 08:46 | NUR ---
PT SITTING UP IN THE CHAIR WITH CON. PULSE OX AND SAT 91% ON ROOM AIR. PT HAS DIMINSHED LUNG SOUNDS TO BASES. PT IS SEEING LYMPHEDEMA NURSE TODAY FOR HER LEGS BILATERALY. PT WAS INCON. DURING THE HS AND PURWICK WAS USED. PT TOOK MEDS WHOLE WITH THIN WATER. PT TOLERATING DIET WITHOUT ANY ISSUES WITH SWOLLOWING.
[2021-05-14 09:15] VITALS: BP 113/50
--- NOTE | 2021-05-14 10:07 | NUR ---
Nutrition followup: pt continues on rehab unit. Eating variable amounts of meals, averaging 80% on [facility] soft, Carb controlled diet. Significant lymphedema in legs, add 2 gm Na+ restriction. Pt has ensure ordered-does not need and also not drinking-D/C. No new weight since 05/07, class 2 obesity. 05/13 BM. continues on B12 supplementation. Low nutrition risk.
--- NOTE | 2021-05-14 16:51 | NUR ---
ADM TYLENOL ARTHRITIS FOR PAIN TO RT KNEE OF 6 ON 1-10 SCALE. PT SITTING UP IN CHAIR FOR DINNER.
[2021-05-14 19:42] VITALS: BP 122/43
--- NOTE | 2021-05-15 02:38 | NUR ---
ASSUMED CARE AT 1915 OF 05/14. PATIENT IS PLEASANTLY CONFUSED, A&O TO SELF AND TIME. MAXIMUM ASSIST TO PIVOT TRANSFER FROM W/C TO BED, USING GB. INCONTINENT OF BLADDER, PERICARE PROVIDED AND BRIEF REMOVED. PRN MELATONIN ADMINISTERED SLEEP AID. CPAP ON AT HS. SLEEPIGN DURING HOURLY ROUNDS. VELCRO LYMPHEDEMA WRAPS IN PLACE AND INTACT, BLE ELEVATED AND HEELS OFFLOADED WHILE IN BED. FALL PRECAUTIONS IN PLACE, CALL LIGHT WITHIN REACH. WILL CONTINUE TO MONITOR.
[2021-05-15 08:11] VITALS: BP 147/48
--- NOTE | 2021-05-15 16:43 | NUR ---
Team meeting, recommendations: assist with bills and pills. Ct 05/20 home with 24/7 supervision and assist as needed. Possible will need to look into snf and or ltc. Spoke with kaylen and son Xi. They both do not feel snf will be a good idea, she been to skilled in the past and we will not have her go back to that type of rehab per son xi. Son will come to do family training on 05/19 with therapy. Per Xi she will have 24/7 supervision at home, mom has to be able to move around herself, have had [facility] in the past but [facility] is who she will use for hh needs at id.
[2021-05-15 18:28] LABS: URINE BILIRUBIN NEGATIVE (Negative); URINE BLOOD NEGATIVE (Negative); URINE CLARITY CLEAR; URINE COLOR YELLOW; URINE GLUCOSE-RANDOM* NEGATIVE (Negative); URINE KETONES NEGATIVE (Negative); URINE LEUKOCYTES 1+ (Negative); URINE NITRITE NEGATIVE (Negative); URINE PROTEIN (DIPSTICK) NEGATIVE (Negative); URINE SPECIFIC GRAVITY 1.015 (1.005-1.035); URINE UROBILINOGEN 0.2 E.U./dl (0.2-1.0)
[2021-05-15 19:09] VITALS: BP 137/51
[2021-05-15 19:11] LABS: BACTERIA 1-9 Few /HPF (None Seen); CASTS None Seen /LPF (None Seen); SQUAMOUS >10 Many /LPF (0-3); URINE RBC 1-2 Rare /HPF (NONE SEEN); URINE WBC 6-15 Few /HPF (NONE SEEN)
[2021-05-15 19:12] LABS: CALCIUM OXALATE 0-3 Few /LPF (None Seen)
--- NOTE | 2021-05-15 20:20 | NUR ---
THIS NURSE ASSUMED CARE OF PATIENT AT 0700. PATIENT A&O X 3 WITH SOME CONFUSION. PATIENT ON RA, INCONTINENT OF BOWEL AND BLADDER. AND ON ROOM AIR. PATIENT ON MECHANICAL SOFT DIET AND DOES NOT NEED STRAWS. LAB RESULT OF UA WAS NEGATIVE BUT WITH FEW TRACES. PATIENT WRAPS BILATERAL EXTREMITIES WITH HOME, VELCRO WRAPPINGS.
--- NOTE | 2021-05-16 02:39 | NUR ---
assumed care approx 1900 evening 05/15. pt sitting up in bed at change of shift talking on phone. pt somewhat forgetful. lower legs wrapped with amadou wrap and elevated. pt took hs meds with water tolerating well. pt max assist up to bsc to have bm. pt wearing cpap at present. bed alarm on and call light in reach. will continue to monitor.
[2021-05-16 07:24] VITALS: BP 127/44
--- NOTE | 2021-05-16 09:17 | NUR ---
ASSISTED PT TO GETTING UP TO W/C THIS AM. PT NEEDED ALOT OF PROMPTS TO MOVE LEFT FOOT. PT LUNGS CLEAR. PT HAD CPAP ON DURING THE HS. PT USED A PURWICK FOR INCON. DURING THE HS. PT HAS LOWER EXT WRAPPED AND LYMPHEDEMA NURSE COMING TODAY TO REWRAP LEGS. PT TOOK MEDS WHOLE WITHOUT ANY ISSUES. PT WOULD LIKE THERAPY TO CUT TOENAILS FOR HER. PT HAS HER OWN TOE NAIL CLIPPERS TO USE. THERAPY STATED THEY WAS NOT ABLE TO CUT HER TOE NAILS. ADM TYLENOL ARTHRITIS 650MG PO FOR PAIN TO RT LEG OF 4 ON 1-10 SCALE.
[2021-05-16] MEDS ORDERED: MACROBID 100 M100 M2 PO (10:07)
--- NOTE | 2021-05-16 15:04 | NUR ---
PT GETTING READY TO REST. ADM TYLENOL 650MG PO FOR PAIN TO LEGS OF 4 ON 1-10 SCALE. PT USING CPAP TO REST.
[2021-05-16 19:20] VITALS: BP 148/71
--- NOTE | 2021-05-16 23:03 | NUR ---
assumed care approx 1900 evening 05/16. pt sitting up in w/c at change of shift. pt pleasant, cooperative, and forgetful at times. pt max assist x3 into bed from w/c at hs. purwick catheter set up. pt c/o mild sore throat, slightly runny nose, and sneezing, no fever 98.0. SPACE CONTROL AGENT Alisa Storey texted and advised to check with malt house loader regarding checking for Covid. forest fire specialist supervisor paged and advised by Echo melter supervisor to continue to monitor patient in the night for continuing symptoms and if pts condition worsens to call SPACE CONTROL AGENT again for orders. pt now being set up with cpap by RT, no further complaints of resp as noted above. bed alarm on and call light in reach. will continue to monitor.
--- NOTE | 2021-05-17 04:28 | NUR ---
pt has not complained further of any sore throat, runny nose, or sneezing. pt was wearing cpap most of night however taking it off intermittently and trying to remove pulse oximeter tape from finger. pt also removed purwick catheter and pads soaked and changed. RT just here and put pts mask back on and cpap on at present with pulse oximeter in place. will continue to monitor.
[2021-05-17 08:00] VITALS: BP 149/67
[2021-05-17 08:15] VITALS: BP 149/67
--- NOTE | 2021-05-17 16:24 | NUR ---
ASSUMED C/O PT AT 0700. PT MOD ASSIST X2 TO [place]. OF URINE. PT BLE WRAPS SOLIED WITH URINE. PT WORKED WITH THERAPIES TODAY. TOLERATING MECH ALTERED DIET. WILL CONTINUE TO MONITOR.
--- NOTE | 2021-05-17 18:23 | NUR ---
PT SOILED BLE LYMPHODEMA WRAPS. THIS NURSE REWRAPPED BLE WITH KERLIX, KHUSHI WRAP, AND TUBI ACCREDITATION COORDINATOR SLEEVES.
[2021-05-17 19:00] VITALS: BP 124/62
--- NOTE | 2021-05-18 05:51 | NUR ---
ASSUMED CARE AT 1915 OF 05/17. PATIENT IS A&O TO SELF AND TIME, INTERMITTENTLY CONFUSED AND REQUIRES REORIENTATION TO SITUATION AND PLACE. MAXIMUM ASSIST TO PIVOT TRANSFER INTO BED. INCONTINENT OF LARGE AMOUNT OF URINE, PERICARE PROVIDED AND ASSISTED WITH REPOSITIONING IN BED. PRN MELATONIN ADMINISTERED SLEEP AID. PATIENT HAD CPAP ON AT HS AND WAS ABLE TO SLEEP ON AND OFF FOR A COUPLE HOURS. AROUND 0200 PATIENT AWOKE, AND APPEARED RESTLESS. PATIENT THEN REQUESTED TO LEAVE CPAP MASK OFF FOR THE REST OF THE NIGHT BECAUSE SHE CANT SLEEP. REPORTED DISCOMFORT IN BLE, NURSE READJUSTED KHUSHI WRAPS AND PRN TYLENOL ADMINISTERED. PATIENT REPORTED FEELING MORE COMFORTABLE, BLE ELEVATED WITH HEELS OFFLOADED AND WARM BLANKET PROVIDED. STAYED AWAKE FOR A COUPLE HOURS AND IS NOW SLEEPING. FALL PRECAUTIONS IN PLACE, CALL LIGHT WITHIN REACH. WILL CONTINUE TO MONITOR.
[2021-05-18 07:00] VITALS: BP 125/63
--- NOTE | 2021-05-18 18:38 | NUR ---
Assumed care of patient at 0700. VS stable, pt oriented x 4. Lung sounds clear over diminished on room air. Dressing on L leg changed, sutures intact with some mild erythema around site. Pt's daughter at bedside today, concerns about patient's hemoglobin level. Fecal occult sent to lab, negative result. Increased appetite today, socializing in dining room with other patients. No concerns at this time.
--- NOTE | 2021-05-18 18:41 | NUR ---
Assumed care of pt at 0700. Patient oriented to self, confused and slightly agitated. After breakfast, patient slightly more oriented. Son, Chacorta, concerned about his mother's mentation and antibiotics being discontinued several days ago. Explained that pt is currenty back on antibiotics for UTI. Other assessment findings normal with lymphedema noted in bilateral lower extremeties, worse on R side. Kerlix and KHUSHI wrap on bilat legs, elevated. Tylenol given for pain. Increased appetite today, socializing in dining room for dinner with other patients.
[2021-05-18 19:55] VITALS: BP 135/61
--- NOTE | 2021-05-19 02:55 | NUR ---
ASSUMED CARE AT 191 OF 05/18. PATIENT WAS RECEIVED SITTING IN W/C SOCIALLIZING WITH OTHER PATIENT IN DINNING ROOM. ONCE PATIENT WAS RETURNED TO HER ROOM, SHE BEGAN TO SHOW SIGNS OF CONFUSION. A&O TO SELF, AND BECOMES FRUSTRATED WHEN REORIENTED TO PLACE OR SITUATION. PATIENT SAID THAT IT IS NOT HER ROOM AND VOICED FRUSTRATION BECAUSE HER SON LEFT HER HERE AND TO BE STUCK. PATIENT WAS OFFERED TO BE TOILETED BUT REFUSED, PATIENT WAS NOT WILLING TO COOPERATE WITH CARES. PATIENT'S SON CAME BY, BUT THIS CAUSE MORE IRRITATION FOR PATIENT. THIS NURSE TOOK SON ASIDE AND UPDATED HIM ON PATIENT, HE REPORTS THAT WHEN SHE HAS A UTI SHE ALWAYS GETS THIS CONFUSED. CLINICAL RESOURCE MANAGER AND SECURITY ASSISTED WITH TRANSFERING PATIENT INTO BED. THERAPUTIC COMMUNICATION AND EMOTIONAL SUPPORT PROVIDED TO PATIENT TO HELP HER CALM DOWN. PATIENT WAS ABLE TO CALM DOWN AND APOLOGIZED FOR HER ACTIONS. AGREEABLE TO TAKE MEDICATION, AND TOLERATED ORAL MEDS WITH THIN LIQUIDS. RT PRESENT AT HS TO PLACE PATIENT IN CPAP. PATIENT HAS BEEN SLEEPING SINCE. FALL PRECAUTIONS IN PLACE, CALL LIGHT WITHIN REACH. WILL CONTINUE TO MONITOR.
[2021-05-19 08:27] VITALS: BP 117/57
--- NOTE | 2021-05-19 08:48 | NUR ---
PT SITTING UP IN W/C. PT STATED THAT THERE IS LICE HERE AND SHE WANTED THIS INTERNET MARKETING INTERN TO ITCH HER BACK. PT ALSO STATED THAT THERE IS BED BUGS. PT STATED THAT HER AREA TO HER ARMS ANY SPOTS ARE BED BUG BITES. PT LUNGS CLEAR. PT TOOK MEDS WHOLE IN WATER. PT HAS CPAP FOR HS. PT HAS LYMPHEDEMA TO LOWER EXT. BILATERALLY. PT STATED SHE HAS SOME PAIN TO RLE OF 4 ON 1-10 SCALE. ADM TYLENOL 650MG PO.
--- NOTE | 2021-05-19 10:44 | NUR ---
PER OT THIS AM, PT IS SHOWING PROGRESS TOWARD GOALS, AND IT WAS RECOMMENDED THAT DC CHANGE TO A GOAL OF HOME ON 05/23. THIS WAS COMMUNITCATED TO THE MEDICAL TEAM AND APPROVED, AND PT AND SON LUIS WERE NOTIFIED, WELL THE TREATMENT TEAM.
--- NOTE | 2021-05-19 13:57 | NUR ---
CM notified by physical therapy and 5N team that her son xi is will be in tomorrow for training with therapy and that DC date has been moved to 05/23/21, drew cutler is following.
--- NOTE | 2021-05-19 17:01 | NUR ---
ADM TYLENOL 650MG FOR PAIN TO RLE OF 5 ON 1-10 SCALE. PT SITTING IN W/C SINCE THERAPY THIS AFTERNOON.
[2021-05-19 19:08] VITALS: BP 93/77
--- NOTE | 2021-05-19 23:57 | NUR ---
assumed care approx 1900 evening 05/19. pt with dayshift nurse at change of shift and assisted into bed by day RN. pt sleeping until approx 2114 and then pt was trying to get out of bed on her own. bed alarm went off and pt stated she would need to get up. advised pt we could not get her up and assisted her into bed. pt c/o pain to back and legs and Tramadol given as ordered. pt wearing cpap at present. appears to be sleeping soundly. bed alarm on and call light in reach. will continue to monitor.
[2021-05-20 03:10] LABS: ABSOLUTE NEUTROPHILS 3.7 thou/uL (1.4-8.2); BASOPHILS 0.8 % (0.0-2.0); EOSINOPHILS 4.5 % (0.0-3.0); HEMATOCRIT 23.5 % (37.0-47.0); HEMOGLOBIN 7.6 gm/dL (12.0-15.0); LYMPHOCYTES 31.1 % (24.0-44.0); MCH 26.7 pg (26.0-34.0); MCHC 32.3 g/dL (28.0-37.0); MCV 82.5 fL (80.0-100.0); MONOCYTES 10.6 % (1.0-8.0); PLATELET COUNT 304 thou/uL (150-400); RBC 2.85 mil/uL (4.20-5.00); RDW 16.6 % (10.5-14.5)
[2021-05-20 03:25] LABS: CALCIUM 8.6 mg/dL (8.5-10.1); CREATININE 0.9 mg/dL (0.6-1.0); MAGNESIUM 2.2 mg/dL (1.8-2.4)
[2021-05-20 08:00] VITALS: BP 139/49
--- NOTE | 2021-05-20 10:25 | NUR ---
PT SITTING UP IN W/C FOR BREAKFAST. PT ALERT TO SELF. PT STATED PAIN TO RLE OF 5 PT STATED SHE COULDN'T RATE PAIN. PT LUNGS CLEAR, CPAP AT BEDSIDE. PT TOOK MEDS WITH WATER WITHOUT ANY ISSUES. ADM TYLENOL 650MG PO AND TRAMADOL 50MG PO.
[2021-05-20 19:25] VITALS: BP 114/53
--- NOTE | 2021-05-21 03:34 | NUR ---
ASSUMED CARE AT 1915 OF 05/20. PATIENT IS A&OX3, REORIENTED TO SITUATION. FORGETFUL AT TIMES, AND INTERMITTENTLY CONFUSED. PATIENT REPORTED PAIN IN BLE, WITH CONCNETRATION OF PAIN IN RLE. PRN PAIN MEDICATION ADMINISTERED TO MANAGE PAIN. PATIENT REQUESTED TO HAVE VELCRO LYMPHEDEMA WRAPS PLACED ON BLE, SO THIS NURSE PLACED COMPRESSION SOCKS AND VELCRO WRAPS ON. MODERATE ASSIST OF 1 WITH TRANSFERS TO AND FROM W/C USING GB. BLE ELEVATED IN BED, WITH HEELS OFFLOADED. CPAP ON AT HS, BUT PATIENT REMOVED MASK AFTER A COUPLE HOURS AND REFUSED TO PUT IT BACK ON. FALL PRECAUTIONS IN PLACE, CALL LIGHT WITHIN REACH. WILL CONTINUE TO MONITOR.
[2021-05-21 08:00] VITALS: BP 136/58
[2021-05-21 08:15] VITALS: BP 136/58
--- NOTE | 2021-05-21 14:12 | NUR ---
Nutrition: pt eating well 75-100% of meals on Carb controlled, low sodium diet. 05/18 BM. Pt voiced no issues with meals. Alerted on ordering as desired. No new weight since 05/07. REC obtain new wt. Low nutrition risk.
[2021-05-21 14:34] VITALS: BP 136/58
--- NOTE | 2021-05-21 14:35 | NUR ---
DC on 05/23 confirmed with [facility]. They can accept and will need orders faxed at [place].
--- NOTE | 2021-05-21 18:30 | NUR ---
PT A&O TO SELF AND MONTH, PT UP WITH MIN ASSIST TO WC. PT TOLERATING DIET. PT SON WOULD LIKE PT TO HAVE A U/A BEFORE DC TO MAKE SURE PT DOESN'T HAVE A UTI. PT WILLINGLY WORKS WT THERAPIES STEADY GAIT NOTED WITH WALKER. WILL CONTINUE TO MONITOR.
[2021-05-21 19:18] VITALS: BP 139/47
--- NOTE | 2021-05-22 05:26 | NUR ---
ASSUMED CARE AT 1915 OF 05/21. PATIENT IS A&OX2, INTERMITENTLY CONFUSED. REORIENTED TO SITUATION AND PLACE. REPORTED PAIN IN RLE, PRN PAIN MEDICATION ADMINISTERED TO MANAGE PAIN. LYMPHEDEMA WRAPS ON BLE ARE IN PLACE AND INTACT. BLE ARE ELEVATED AND HEELS ARE OFFLOADED WHILE IN BED. RT WAS PRESENT AT TO INITIATE NOCTURNAL DESAT STUDY, PATIENT REQUIRED MANY REMINDERS NOT TO REMOVE PULSE OXIMETRY FROM FINGER BECAUSE IT NEEDS TO REMAIN ATTACHED TO FINGER UNTIL THE MORNING. REMAINED ON ROOM AIR, NO SIGNS RESPIRATORY DISTRESS. SLEEPING ON AND OFF. MINIMAL ASSIST WITH TRANSFER TO AND FROM /, USING GB AND WALKER. PATIENT WAS INCONTINENT OF LARGE AMOUNT OF URINE IN BED, PERICARE PROVIDED AND INCONTINENCE PADS CHANGE. FALL PRECAUTIONS IN PLACE, CALL LIGHT WITHIN REACH. WILL CONTINUE TO MONITOR.
[2021-05-22 08:00] VITALS: BP 122/52
--- NOTE | 2021-05-22 09:12 | NUR ---
PT UP TO CHAIR THIS AM. PT WAS UPSET AND WANTED TO GET DRESSED AND GO HOME. PT ASSISTED TO CHAIR. PT NEEDED HELP GETTING UP AND INTO THE CHAIR. PT HAS LYMPH WRAPES TO LOWER EXT. PT STATED SHE HAS PAIN TO RT LEG OF 7 ON 1-10 SCALE. PT LUNGS CLEAR AND ON ROOM AIR. ADM TYLENOL 650MG PO. PT ABLE TO TAKE MEDS WHOLE WITH WATER.
--- NOTE | 2021-05-22 16:02 | NUR ---
Team meeting, recommendation: diet regular with thin liquids. Needs assist with medication and finances. Son is able to lift her legs in and out of bed. mod to severe cognition and memory deficits. Patient is able to do the lymphedema wraps. NIRMAL carrera ( pt, ot, nursing, sw). Family will get her a Linux Security Administrator for dc. She has dme in place at home. CM spoke with patient son xi, he agree with dc plan for tomorrow. Follow up to see if kaylen has any home o2 or a cpap. " she has a cpap, she had sleep study 6 months ago and will not wear it because she does not like the way the nose mask fits. CPAP from [facility] Xi. Patient will need wheel chair ride home tomorrow and son requested time between 1-2pm. Education on calling [facility] to get her fitted for different mask. Ok to vouch for transportation with [employer], no stairs to enter the home, family to have snow removed from drive way.
[2021-05-22 16:46] LABS: URINE BILIRUBIN NEGATIVE (Negative); URINE BLOOD NEGATIVE (Negative); URINE CLARITY CLEAR; URINE COLOR YELLOW; URINE GLUCOSE-RANDOM* NEGATIVE (Negative); URINE KETONES NEGATIVE (Negative); URINE LEUKOCYTES-REFLEX NEGATIVE (Negative); URINE NITRITE-REFLEX NEGATIVE (Negative); URINE PROTEIN (DIPSTICK) NEGATIVE (Negative); URINE UROBILINOGEN 0.2 E.U./dl (0.2-1.0)
[2021-05-22 19:05] VITALS: BP 124/57
--- NOTE | 2021-05-23 03:59 | NUR ---
Assumed care on 05/22/21 @ 1915, awake alert and oriented x3-4. Takes meds whole with water, but first asked to read each med before it was offered and handle the med package. Patient was cranky with this staff member, and cranky and confused with other staff members. HRRR, Lungs CTA bilat, ABD N x 4Q. Legs wrap. Continent of urine, Transferred to wheel chair and transferred to toilet. Legs are wrapped, dressing is C/D/I. Bed in low position, bed alarm set, call light within reach. Hourly rounding as per unit protocol.
[2021-05-23] MEDS ORDERED: COLACE100 MG PO (08:02)
[2021-05-23] MEDS ORDERED: VITAMIN B-12500 MCG PO (08:02)
[2021-05-23] MEDS ORDERED: NORVASC10 MG PO (08:02)
[2021-05-23] MEDS ORDERED: ACETAMINOPHEN650 M5 PO (08:02)
[2021-05-23] MEDS ORDERED: FUROSEMIDE 40 M40 M1 PO (08:04)
[2021-05-23 09:03] VITALS: BP 140/53
--- NOTE | 2021-05-23 12:30 | NUR ---
PT REMAINS CONFUSED AND IRRITABLE AT TIMES. COMPLIANT WITH MEDICATIONS. BLE'S REMAIN WRAPPED FOR LYMPHEDEMA. HAS BEEN INCONTINENT OF URINE. DISCHARGE INSTRUCTIONS REVIEWED WITH PT. PT VERBALIZED UNDERSTANDING. WILL ALSO REVIEW DISCHARGE INSTRUCTIONS WITH PT'S SON WELL. PT'S BELONGINGS SENT WITH PT. DENIES PAIN OR DISCOMFORT.
--- NOTE | 2021-05-24 11:46 | NUR ---
PT DISCHARGED TO HOME WITH [facility] ON 05/23/21 THEY DID NOT RECEIVED DC ORDERS SO I, FAXED DC ORDERS/SUMMARY SPOKE WITH KLAUDIA IN INTAKE AT [facility] SHE RECEIVED ORDERS AND WILL ARRANGE VISITS WITH PT.
== END 2021-05-23 14:29 | disposition home health service (06) | DRG 70 ==
PROVIDERS: Nurse Practitioner; ADMIT Physical Medicine & Rehabilitation; ATTEND Physical Medicine & Rehabilitation
PROC: 5A09557 Assistance with Respiratory Ventilation, Greater than 96 Consecutive Hours, Continuous Positive Airway Pressure (ICD-10-PCS; principal; 2021-05-08)
DX: G93.41 Metabolic encephalopathy (principal); J18.9 Pneumonia, unspecified organism; N17.9 Acute kidney failure, unspecified; N39.0 Urinary tract infection, site not specified; R53.81 Other malaise; M19.90 Unspecified osteoarthritis, unspecified site; E66.9 Obesity, unspecified; F03.90 Unspecified dementia, unspecified severity, without behavioral disturbance, psychotic disturbance, mood disturbance, and anxiety; I89.0 Lymphedema, not elsewhere classified; N18.9 Chronic kidney disease, unspecified; F32.9 Major depressive disorder, single episode, unspecified; F41.9 Anxiety disorder, unspecified; D63.8 Anemia in other chronic diseases classified elsewhere; R41.0 Disorientation, unspecified; F01.50 Vascular dementia, unspecified severity, without behavioral disturbance, psychotic disturbance, mood disturbance, and anxiety; B96.20 Unspecified Escherichia coli [E. coli] as the cause of diseases classified elsewhere; I12.9 Hypertensive chronic kidney disease with stage 1 through stage 4 chronic kidney disease, or unspecified chronic kidney disease; E03.9 Hypothyroidism, unspecified; Z68.37 Body mass index [BMI] 37.0-37.9, adult; Z86.718 Personal history of other venous thrombosis and embolism
CPT/HCPCS: 10112